=== PATIENT | female | born 1945 | race Caucasian/White ===

== ENCOUNTER 2018-02-18 09:54 | Outpatient (CLI) | payer MEDICARE ==
--- NOTE | 2018-02-21 10:54 | Mammography Report ---
Procedure Date: 02/18/2018 Accession Number: [id number] / [id number] Procedure: MGN - Screening Mammo Dig Bilat CPT Code: FULL RESULT: EXAM: Screening Mammo Dig Bilat DATE: 02/18/2018 10:19 AM CLINICAL HISTORY: 72-year-old female with history of early menses and personal history of left breast cancer status post lumpectomy and chemoradiation presents for screening mammogram. TECHNIQUE: Bilateral CC and MLO views were obtained. Additionally, right and left XCCL views were obtained. COMPARISON: 09/13/2015, 09/15/2014, 05/06/2013, 08/31/2011. FINDINGS: The breasts demonstrate scattered fibroglandular densities bilaterally. Coarse typically benign calcifications are seen bilaterally. Postsurgical and posttreatment changes in the left breast are stable. No suspicious masses, clustered microcalcifications, or regions of architectural distortion are identified. IMPRESSION: Benign findings RECOMMENDATION: Routine annual screening unless otherwise clinically indicated. BIRADS CATEGORY 2: Benign findings STANDARD QUALIFYING STATEMENTS: 1. This examination was reviewed with the aid of Computer-Aided Detection (CAD). 2. A negative or benign imaging report should not delay biopsy if clinically suspicious findings are present. Consider surgical consultation if warrented. More than 5% of cancers are not identified by imaging. 3. Dense breasts may obscure an underlying neoplasm.
== END 2018-02-18 09:55 | disposition home or self-care (01) ==
LOC: DI.N 09:54
PROVIDERS: ATTEND Internal Medicine
DX: Z12.31 Encounter for screening mammogram for malignant neoplasm of breast (principal)
CPT/HCPCS: 77067

== ENCOUNTER 2019-04-20 09:44 | Outpatient (CLI) | payer MEDICARE ==
[2019-04-20 10:05] LABS: BASOPHILS # (AUTO) 0.1 10^3/uL (0.0-0.1); BASOPHILS % (AUTO) 0.8 %; EOSINOPHILS # (AUTO) 0.2 10^3/uL (0.0-0.7); EOSINOPHILS % (AUTO) 2.9 %; HGB - HEMOGLOBIN 12.6 g/dL (12.0-16.0); LYMPHOCYTES # (AUTO) 1.7 10^3/uL (1.5-3.5); LYMPHOCYTES % (AUTO) 27.2 %; MEAN CORPUSCULAR HEMOGLOBIN 28.1 pg (27.0-31.0); MEAN CORPUSCULAR HGB CONC 31.5 g/dL (32.0-36.0); MEAN CORPUSCULAR VOLUME 89.3 fL (81.0-99.0); MEAN PLATELET VOLUME 12.4 fL (7.9-10.8); MONOCYTES # (AUTO) 0.5 10^3/uL (0.0-1.0); MONOCYTES % (AUTO) 7.9 %; NEUTROPHILS # (AUTO) 3.8 10^3/uL (1.5-6.6); NEUTROPHILS % (AUTO) 60.9 %; PLT - PLATELET COUNT 220 10^3/uL (130-450); RED BLOOD COUNT 4.48 10^6/uL (4.20-5.40); RED CELL DISTRIBUTION WIDTH 13.1 % (12.0-15.0); WHITE BLOOD COUNT 6.2 x10^3/uL (4.8-10.8)
[2019-04-20 10:16] LABS: BILIRUBIN,URINE NEGATIVE (NEGATIVE); GLUCOSE, URINE (UA) NEGATIVE (NEGATIVE); KETONES,URINE (UA) NEGATIVE (NEGATIVE); LEUKOCYTE ESTERASE, URINE NEGATIVE (NEGATIVE); NITRITE,URINE NEGATIVE (NEGATIVE); OCCULT BLOOD,URINE NEGATIVE (NEGATIVE); PROTEIN,URINE NEGATIVE (NEGATIVE); UROBILINOGEN,URINE 0.2 (NORMAL) E.U./dL (NORMAL)
[2019-04-20 10:17] LABS: CLARITY,URINE CLEAR (CLEAR)
[2019-04-20 10:26] LABS: ALBUMIN 4.3 g/dL (3.2-5.5); ALBUMIN/GLOBULIN RATIO 1.3 (1.0-2.2); ALKALINE PHOSPHATASE 62 IU/L (42-121); ALT ALANINE AMINOTRANSFERASE 18 IU/L (10-60); AST ASPARTATE AMINOTRANSFERASE 17 IU/L (10-42); BILIRUBIN,TOTAL 0.5 mg/dL (0.2-1.0); BUN - BLOOD UREA NITROGEN 43 mg/dL (6-20); CALCIUM 9.8 mg/dL (8.5-10.3); CARBON DIOXIDE - CO2 21 mmol/L (21-32); CHLORIDE 104 mmol/L (101-111); CHOL/HDL RATIO 2.9 (<4.4); CHOLESTEROL 168 mg/dL; CK- CREATINE KINASE 140 IU/L (22-269); CREATININE 0.9 mg/dL (0.4-1.0); GFR - MDRD 61 (>89); GLUCOSE 252 mg/dL (70-100); HDL CHOLESTEROL 58 mg/dL; LDL CHOLESTEROL,CALCULATED 85 mg/dL; LDL/HDL RATIO 1.5 (<4.4); SODIUM 137 mmol/L (135-145); TOTAL PROTEIN 7.5 g/dL (6.7-8.2); VLDL CHOLESTEROL 25 mg/dL
[2019-04-20 10:34] LABS: CREATININE,URINE 91.6 mg/dL; MICROALBUM/CREATININE RATIO,UR 9.8 ug/mg (<30.0); MICROALBUMIN,URINE 0.9 mg/dL (0-300.0)
[2019-04-20 10:49] LABS: HB2 TOTAL 12.9 g/dL; HEMOGLOBIN A1C 1.06 g/dL; HEMOGLOBIN A1C % 9.7 % (4.6-6.2)
[2019-04-20 11:33] LABS: THYROID STIMULATING HORMONE 2.06 uIU/mL (0.34-5.60)
== END 2019-04-20 09:45 | disposition home or self-care (01) ==
LOC: LAB 09:44
PROVIDERS: ATTEND Internal Medicine
DX: E78.5 Hyperlipidemia, unspecified (principal); Z79.899 Other long term (current) drug therapy; R20.0 Anesthesia of skin; E11.9 Type 2 diabetes mellitus without complications; I10 Essential (primary) hypertension; Z13.6 Encounter for screening for cardiovascular disorders; K21.9 Gastro-esophageal reflux disease without esophagitis; C50.919 Malignant neoplasm of unspecified site of unspecified female breast; M19.90 Unspecified osteoarthritis, unspecified site
CPT/HCPCS: 36415; 80053; 80061; 81001; 81003; 82043; 82550; 82570; 82607; 83036; 83721; 84443; 85025; 87086

== ENCOUNTER 2020-11-28 13:33 | Outpatient (CLI) | payer MEDICARE ==
--- NOTE | 2020-11-29 12:10 | Mammography Report ---
BILATERAL DIGITAL SCREENING MAMMOGRAM 3D/2D: 11/28/2020 CLINICAL: Routine screening. Personal history of left breast cancer. Family history of breast cancer. Comparison is made to exams dated: 02/18/2018 mammogram and 09/13/2015 mammogram - [facility]. There are scattered fibroglandular elements in both breasts. There are benign post operative findings in the left breast. No significant masses, calcifications, or other findings are seen in either breast. There has been no significant interval change. IMPRESSION: BENIGN There is no mammographic evidence of malignancy. A 1 year screening mammogram is recommended. This exam was interpreted at Station ID: [id number]. NOTE: For mammograms, a report in lay terms will be sent to the patient. Approximately 15% of breast malignancies will not be visualized mammographically. In the management of a palpable breast mass, a negative mammogram must not discourage biopsy of a clinically suspicious lesion. Electronically Signed By: Srinath Mills M.D. ar/devinrad:11/28/2020 14:35:21 ACR BI-RADS Category 2: Benign Finding(s) 3342F PARENCHYMAL PATTERN: (A) - The breast(s) demonstrate(s) scattered fibroglandular densities. BI-RADS CATEGORY: (2) - 2 RECOMMENDATION: (ANNUAL) - Recommend routine annual screening mammography. [id number] 1 year screening LATERALITY: (B)
== END 2020-11-28 13:34 | disposition home or self-care (01) ==
LOC: DI.N 13:33
PROVIDERS: ATTEND Internal Medicine
DX: Z12.31 Encounter for screening mammogram for malignant neoplasm of breast (principal); Z85.3 Personal history of malignant neoplasm of breast; Z80.3 Family history of malignant neoplasm of breast

== ENCOUNTER 2021-08-28 12:04 | Outpatient (CLI) | payer MEDICARE ==
--- NOTE | 2021-08-28 13:35 | Ultrasound Report ---
PROCEDURE: Duplex Ext Veins Right INDICATIONS: R LE PAIN TECHNIQUE: Real-time imaging, as well as color and pulse Doppler interrogation, were performed of the lower extr emity deep veins from the inguinal ligament to the popliteal fossa. COMPARISON: None. FINDINGS: The deep veins are normally compressible, and free of intraluminal thrombus. Color and pu lse Doppler demonstrate normal phasic intraluminal flow. There is normal augmentation response to di stal compression maneuver. Complex bilobed cystic structure is seen in popliteal fossa measures up to 4.3 x 1.7 x 16 cm in size. IMPRESSION: 1. No evidence of DVT in visualized right lower extremity veins. 2. Large popliteal cyst as above. Reviewed by: Darien Cherry MD on 08/28/2021 1:33 PM PST Approved by: Darien Cherry MD on 08/28/2021 1:33 PM PST Station ID: [id number]
== END 2021-08-28 12:05 | disposition home or self-care (01) ==
LOC: DI 12:04
PROVIDERS: ATTEND Internal Medicine
DX: M71.21 Synovial cyst of popliteal space [Baker], right knee (principal); M79.661 Pain in right lower leg

== ENCOUNTER 2021-09-14 15:28 | Outpatient (CLI) | payer MEDICARE ==
--- NOTE | 2021-09-14 16:23 | XRAY Report ---
PROCEDURE: Knee 4 View RT INDICATIONS: PAIN IN RIGHT KNEE TECHNIQUE: 4 views of the right knee(s) were acquired. One view of the left. COMPARISON: None. FINDINGS: Bones: Mild joint space narrowing in the medial and lateral compartments. There are small osteophyte s. No fractures or dislocations. No suspicious bony lesions. Left knee arthroplasty. Soft tissues: Small joint effusion. No suspicious soft tissue calcifications. 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 Reviewed by: Juan Lai MD on 09/14/2021 4:21 PM PST Approved by: Juan Lai MD on 09/14/2021 4:21 PM PST Station ID: [id number]
== END 2021-09-14 15:29 | disposition home or self-care (01) ==
LOC: DI.N 15:28
PROVIDERS: ATTEND Physician Assistant
DX: M17.11 Unilateral primary osteoarthritis, right knee (principal)

== ENCOUNTER 2021-10-24 07:22 | Outpatient (CLI) | payer MEDICARE ==
[2021-10-24 13:25] LABS: ALBUMIN/GLOBULIN RATIO 1.4 (1.0-2.2); ALKALINE PHOSPHATASE 45 IU/L (42-121); ALT ALANINE AMINOTRANSFERASE 23 IU/L (10-60); AST ASPARTATE AMINOTRANSFERASE 20 IU/L (10-42); BILIRUBIN,TOTAL 0.6 mg/dL (0.2-1.0); BUN - BLOOD UREA NITROGEN 42 mg/dL (6-20); CALCIUM 9.1 mg/dL (8.5-10.3); CARBON DIOXIDE - CO2 23 mmol/L (21-32); CHLORIDE 103 mmol/L (101-111); CHOL/HDL RATIO 2.6 (<4.4); CHOLESTEROL 157 mg/dL; CK- CREATINE KINASE 133 IU/L (22-269); CREATININE 0.9 mg/dL (0.4-1.0); GFR - MDRD 61 (>89); GLUCOSE 106 mg/dL (70-100); HDL CHOLESTEROL 61 mg/dL; LDL CHOLESTEROL,CALCULATED 67 mg/dL; LDL/HDL RATIO 1.1 (<4.4); POTASSIUM 3.9 mmol/L (3.5-5.0); SODIUM 135 mmol/L (135-145); TOTAL PROTEIN 6.9 g/dL (6.7-8.2); TRIGLYCERIDES 143 mg/dL; VLDL CHOLESTEROL 29 mg/dL
[2021-10-24 13:29] LABS: THYROID STIMULATING HORMONE 3.7 uIU/mL (0.34-5.60)
[2021-10-24 14:08] LABS: BILIRUBIN,URINE NEGATIVE (NEGATIVE); GLUCOSE, URINE (UA) NEGATIVE (NEGATIVE); KETONES,URINE (UA) NEGATIVE (NEGATIVE); LEUKOCYTE ESTERASE, URINE NEGATIVE (NEGATIVE); NITRITE,URINE NEGATIVE (NEGATIVE); OCCULT BLOOD,URINE NEGATIVE (NEGATIVE); PH,URINE 5.5 PH (5.0-7.5); PROTEIN,URINE NEGATIVE (NEGATIVE); UROBILINOGEN,URINE 0.2 (NORMAL) E.U./dL (NORMAL)
[2021-10-24 14:09] LABS: CLARITY,URINE CLEAR (CLEAR)
[2021-10-24 14:14] LABS: BACTERIA,URINE Rare /HPF (None Seen); RBC,URINE None Seen /HPF (0-5); SQUAMOUS EPITHELIAL CELL,UR NONE SEEN (<= Few)
[2021-10-24 14:15] LABS: WBC,URINE 0-3 /HPF (0-5)
[2021-10-24 14:21] LABS: ESTIMATED AVERAGE GLUCOSE 243 mg/dL (70-100); HEMOGLOBIN A1c% 10.1 % (4.27-6.07)
== END 2021-10-24 07:23 | disposition home or self-care (01) ==
LOC: LAB.N 07:22
PROVIDERS: ATTEND Internal Medicine
DX: I10 Essential (primary) hypertension (principal); E78.5 Hyperlipidemia, unspecified; Z13.6 Encounter for screening for cardiovascular disorders; R60.9 Edema, unspecified; N39.41 Urge incontinence; E11.9 Type 2 diabetes mellitus without complications; R20.0 Anesthesia of skin; K21.9 Gastro-esophageal reflux disease without esophagitis
CPT/HCPCS: 36415; 80053; 80061; 81001; 82043; 82550; 82570; 82607; 83036; 83721; 83880; 84443; 87086

== ENCOUNTER 2022-06-19 15:27 | Outpatient (CLI) | payer MEDICARE | END 2022-06-19 15:28 | disposition home or self-care (01) | LOC: LAB 15:27 | PROVIDERS: ATTEND Internal Medicine | DX: M25.562 Pain in left knee (principal); M25.561 Pain in right knee; E53.8 Deficiency of other specified B group vitamins | CPT/HCPCS: 36415; 82607; 82746; 83090; 83921 ==

== ENCOUNTER 2023-05-24 09:09 | Outpatient (CLI) | payer MEDICARE ==
[2023-05-24 09:26] LABS: ABSOLUTE RETICS # AUTO 0.053 10^6/uL (0.020-0.110); BASOPHILS # (AUTO) 0.1 10^3/uL (0.0-0.1); BASOPHILS % (AUTO) 0.9 %; EOSINOPHILS # (AUTO) 0.3 10^3/uL (0.0-0.7); EOSINOPHILS % (AUTO) 4.3 %; HGB - HEMOGLOBIN 12.4 g/dL (12.0-16.0); LYMPHOCYTES # (AUTO) 1.8 10^3/uL (1.5-3.5); LYMPHOCYTES % (AUTO) 30.4 %; MEAN CORPUSCULAR HEMOGLOBIN 27.6 pg (27.0-31.0); MEAN CORPUSCULAR HGB CONC 31.8 g/dL (32.0-36.0); MEAN CORPUSCULAR VOLUME 86.7 fL (81.0-99.0); MONOCYTES # (AUTO) 0.6 10^3/uL (0.0-1.0); MONOCYTES % (AUTO) 10.8 %; NEUTROPHILS # (AUTO) 3.1 10^3/uL (1.5-6.6); NEUTROPHILS % (AUTO) 53.4 %; PLT - PLATELET COUNT 204 10^3/uL (130-450); RED CELL DISTRIBUTION WIDTH 14.3 % (12.0-15.0); RETICULOCYTE COUNT % (AUTO) 1.18 % (0.5-2.3); WHITE BLOOD COUNT 5.9 x10^3/uL (4.8-10.8)
[2023-05-24 10:02] LABS: FERRITIN 31.7 ng/mL (11.0-306.8)
== END 2023-05-24 09:10 | disposition home or self-care (01) ==
LOC: LAB 09:09
PROVIDERS: ATTEND Nurse Practitioner
DX: M25.50 Pain in unspecified joint (principal)
CPT/HCPCS: 36415; 82607; 82728; 82746; 83540; 84466; 85025; 85045

== ENCOUNTER 2023-06-12 14:10 | Outpatient (CLI) | payer MEDICARE ==
--- NOTE | 2023-06-14 09:33 | Mammography Report ---
BILATERAL DIGITAL SCREENING MAMMOGRAM 3D/2D: 06/12/2023 CLINICAL: Routine screening. Personal history of left breast cancer. Comparison is made to exams dated: 11/28/2020 mammogram, 02/18/2018 mammogram, 09/13/2015 mammogram, an d 09/15/2014 mammogram - [facility]. There are scattered areas of fibroglandular density in both breasts (category b / 25%-50% glandular t issue). There are grouped fine calcifications in the left breast at 1 o'clock anterior depth. These are more prominent. Post operative finding in the left breast. Scattered benign calcifications in the left breast. No oth er significant masses, calcifications, or other findings are seen in either breast. IMPRESSION: INCOMPLETE: NEEDS ADDITIONAL IMAGING EVALUATION The grouped fine calcifications in the left breast are indeterminate. Additional views are recommended. This exam was interpreted at Station ID: [id number]. NOTE: For mammograms, a report in lay terms will be sent to the patient. Approximately 15% of breast malignancies will not be visualized mammographically. In the management of a palpable breast mass, a negative mammogram must not discourage biopsy of a clinically suspicious lesion. Electronically Signed By: Juan Lai M.D. slc/:06/12/2023 17:50:13 ACR BI-RADS Category 0: Incomplete 3340F PARENCHYMAL PATTERN: (A) - The breast(s) demonstrate(s) scattered fibroglandular densities. BI-RADS CATEGORY: (0) - 0 RECOMMENDATION: (ADDMAM) - Recommend additional mammographic views. [id number] Immediate follow-up LATERALITY: (B)
== END 2023-06-12 14:11 | disposition home or self-care (01) ==
LOC: DI 14:10
PROVIDERS: ATTEND Nurse Practitioner
DX: Z12.31 Encounter for screening mammogram for malignant neoplasm of breast (principal); R92.1 Mammographic calcification found on diagnostic imaging of breast; Z85.3 Personal history of malignant neoplasm of breast; R92.323 Mammographic fibroglandular density, bilateral breasts

== ENCOUNTER 2023-06-12 14:12 | Outpatient (CLI) | payer MEDICARE ==
--- NOTE | 2023-06-12 15:41 | DEXA Report ---
PROCEDURE: Dexa Spine and/or Hip INDICATIONS: POST MENOPAUSAL TECHNIQUE: Dual energy x-ray absorptiometry (DXA) was performed on a [facility]. Regions measur ed are the AP Spine, femoral neck, and if needed forearm. COMPARISON: None FINDINGS: Lumbar Spine: Bone Mineral Density 1.778 g/cm/cm,T score 5.0. Left Femoral Neck: Bone Mineral Density [1.162 g/cm/cm, T score 0.9. Left Hip: Bone Mineral Density 1.267 g/cm/cm,T score 2.1. (T score greater or equal to -1.0: NORMAL) (T score from -1.1 to -2.4: OSTEOPENIA) (T score less than or equal to -2.5 to: OSTEOPOROSIS) Impression: By WHO criteria, this patient has low bone density (osteopenia). Patients with diagnosis of osteoporosis or osteopenia should have regular bone mineral density assess ment. For those eligible for Medicare, routine testing is allowed once every 2 years. Testing frequ ency can be increased for patients who have rapidly progressing disease or for those who are receivin g medical therapy to restore bone mass. Reviewed by: Mallorie Lennon MD on 06/12/2023 3:40 PM PST Approved by: Mallorie Lennon MD on 06/12/2023 3:40 PM PST Station ID: [id number]
== END 2023-06-12 14:13 | disposition home or self-care (01) ==
LOC: DI 14:12
PROVIDERS: ATTEND Nurse Practitioner
DX: Z78.0 Asymptomatic menopausal state (principal)

== ENCOUNTER 2023-08-16 10:41 | Outpatient (CLI) | payer MEDICARE ==
--- NOTE | 2023-08-19 09:23 | Mammography Report ---
UNILATERAL LEFT DIGITAL DIAGNOSTIC MAMMOGRAM 3D/2D WITH MAGNIFICATION: 08/16/2023 CLINICAL: Patient returns for magnification views of microcalcifications in the left breast. Comparison is made to exams dated: 06/12/2023 mammogram and 11/28/2020 mammogram - [facility]. There are scattered areas of fibroglandular density in the left breast (category b / 25%-50% glandula r tissue). There are grouped fine heterogeneous pleomorphic calcifications in the left breast at 1 o'clock anter ior depth. These are seen in additional views. These are more prominent and increased in number of calcifications. No other significant masses or calcifications are seen in the breast. IMPRESSION: SUSPICIOUS OF MALIGNANCY The grouped fine heterogeneous pleomorphic calcifications in the left breast are suspicious of malign iraj. A stereotactic biopsy is recommended. Findings and recommendations were discussed with the patient by Dr. Floyd during today's examination. This exam was interpreted at Station ID: [id number]. NOTE: For mammograms, a report in lay terms will be sent to the patient. Approximately 15% of breast malignancies will not be visualized mammographically. In the management of a palpable breast mass, a negative mammogram must not discourage biopsy of a clinically suspicious lesion. Electronically Signed By: Ryan Stuart M.D. aty/:08/16/2023 11:39:13 ACR BI-RADS Category 4: Suspicious abnormality 3344F PARENCHYMAL PATTERN: (A) - The breast(s) demonstrate(s) scattered fibroglandular densities. BI-RADS CATEGORY: (4) - 4 Biopsy [id number] Immediate follow-up LATERALITY: (L)
== END 2023-08-16 10:42 | disposition home or self-care (01) ==
LOC: DI 10:41
PROVIDERS: ATTEND Nurse Practitioner
DX: R92.322 Mammographic fibroglandular density, left breast (principal); R92.1 Mammographic calcification found on diagnostic imaging of breast

== ENCOUNTER 2023-08-26 08:29 | Outpatient (CLI) | payer MEDICARE ==
[2023-08-26 09:48] LABS: CREATININE,URINE 86.8 mg/dL; MICROALBUM/CREATININE RATIO,UR 55.3 ug/mg (<30.0); MICROALBUMIN,URINE 4.8 mg/dL
[2023-08-26 11:34] LABS: ESTIMATED AVERAGE GLUCOSE 171 mg/dL (70-100); HEMOGLOBIN A1c% 7.6 % (4.27-6.07)
== END 2023-08-26 08:30 | disposition home or self-care (01) ==
LOC: LAB 08:29
PROVIDERS: ATTEND Nurse Practitioner
DX: E11.42 Type 2 diabetes mellitus with diabetic polyneuropathy (principal)
CPT/HCPCS: 36415; 82043; 82570; 83036

== ENCOUNTER 2023-09-10 08:07 | Outpatient (CLI) | payer MEDICARE ==
[2023-09-10] MEDS ORDERED: LIDOCAINE-MPF 1% 5 ML VIAL ONE (08:11)
[2023-09-10] MEDS ORDERED: LIDOCAINE 1%-EPI 1:100000 50 ML VIAL ONE (08:11)
[2023-09-10] MEDS: LIDOCAINE-MPF 1% 5 ML VIAL TD ONE (09:58)
[2023-09-10] MEDS ORDERED: LIDOCAINE 1%-EPI 1:100000 50 ML VIAL TD ONE (10:00)
[2023-09-10] MEDS: LIDOCAINE 1%-EPI 1:100000 50 ML VIAL TD SCH (10:00)
--- NOTE | 2023-09-12 17:03 | Mammography Report ---
STEREOTACTIC GUIDED BIOPSY LEFT BREAST USING VACUUM DEVICE WITH MARKING DEVICE INSERTED AND POST MAMM OGRAPHIC IMAGING- - LEFT BREAST POST-PROCEDURE IMAGING FOR MARKER PLACEMENT: 09/10/2023 CLINICAL: Left stereotactic biopsy for calcifications. Correlation is made to exams dated: 08/16/2023 mammogram, 06/12/2023 mammogram, 11/28/2020 mammogram, 02/18/2018 mammogram, 09/13/2015 mammogram, and 09/15/2014 mammogram - [facility]. A stereotactic guided biopsy was performed for the concerning area of calcifications located in the l eft breast at 1 o'clock anterior depth. This was described on the previous mammography report. The skin was prepped in the usual manner. Local anesthetic was administered to the access site. A s kin alberto was made in the breast. The abnormality was approached from the caudocranial aspect. A 10 gauge biopsy needle was placed adjacent to the abnormality under computer guidance and confirmatory s tereotactic mammography images were obtained to document needle placement. Once the needle was docum ented to be in the correct location, six specimens were obtained using a vacuum assisted device. A clip was inserted into the biopsy cavity. Post procedure mammographic imaging demonstrates the loc ation device at the targeted area. The specimens were sent to the laboratory for pathological analys is. IMPRESSION: STEREOTACTIC GUIDED BIOPSY MALIGNANT Stereotactic guided biopsy of the area of calcifications in the left breast at 1 o'clock anterior dep th was successful. Specimen radiograph contains the calcifications of interest. Pathology demonstrate ductal carcinoma in situ. Pathology results are concordant with imaging finding s. A surgical/oncologic consultation is recommended. This exam was interpreted at Station ID: [id number]. José fu,slc/:09/12/2023 14:35:07 BI-RADS CATEGORY: () - Unspecified - other recall n/a LATERALITY: (B)
== END 2023-09-10 08:08 ==
LOC: DI 08:07
PROVIDERS: ATTEND Nurse Practitioner
DX: D05.12 Intraductal carcinoma in situ of left breast (principal)
CPT/HCPCS: 19081; J3490

== ENCOUNTER 2023-11-11 06:28 | Day surgery (SDC) | payer MEDICARE ==
[~2023-11-11 06:28] MED LIST: ceFAZolin 2 GM VIAL ONE
[2023-11-11] MEDS: LACTATED RINGERS 1,000 ML IV ONE ×3 (06:57→12:24)
[2023-11-11] MEDS ORDERED: LIDOCAINE 1%-EPI 1:100000 20 ML MDV ONE (06:57)
[2023-11-11] MEDS ORDERED: BUPIVACAINE 0.5% PF 10 ML VIAL ONE (06:58)
[2023-11-11] MEDS: ACETAMINOPHEN 500 MG TABLET PO ONE (07:09)
[2023-11-11] MEDS ORDERED: fentaNYL 100 MCG/2 ML VIAL ONE ×2 (07:11→08:54)
[2023-11-11] MEDS ORDERED: PROPOFOL 200 MG/20 ML VIAL IVP ONE (07:11)
[2023-11-11] MEDS ORDERED: ePHEDrine 50 MG/ML VIAL IVP ONE (07:54)
--- NOTE | 2023-11-11 07:58 | ANESTHESIA ---
Pre-Anesthesia VS, & Labs - Diagnosis Left breast cancer DCIS - Procedure Left mastectomy Vital Signs: Temp Pulse Resp BP Pulse Ox O2 Flow Rate 36.4 C L 70 22 137/61 H 93 11/11/23 07:01 11/11/23 07:01 11/11/23 07:01 11/11/23 07:01 11/11/23 07:01 Height: 5 ft 9 in Weight (kg): 100.2 kg Body Mass Index: 32.5 BMI Classification: Obese - NPO >8 hours - Is Patient ?: No - Lab Results Current Lab Results: Laboratory Tests 11/11/23 07:12: POC Whole Bld Glucose 100 Lab results reviewed: Yes Home Medications and Allergies Felodipine [Felodipine ER] 10 mg PO HS 02/08/23 Insulin Glargine [Lantus] 25 unit SUBQ QPM 02/08/23 Lisinopril [Zestril] 40 mg PO HS 02/08/23 Metformin HCl 1,000 mg PO BID 02/08/23 glipiZIDE [Glucotrol] 5 mg PO BID 02/08/23 Acetaminophen [Tylenol] 650 mg PO Q6H PRN 10/17/23 Gabapentin [Neurontin] 400 mg PO HS 10/17/23 Triamterene/Hydrochlorothiazid [Triamterene-Hctz 37.5-25 mg Cp] 1 each PO HS 10/17/23 carvediloL [Coreg] 3.125 mg PO BID 10/17/23 Allergies/Adverse Reactions: Allergies Allergy/AdvReac Type Severity Reaction Status Date / Time No Known Drug Allergies Allergy Verified 11/11/23 07:07 Anes History & Medical History - Anesthetic History Anesthesia Complications: reports: No previous complications - Medical History Cardiovascular: reports: Hypertension, High cholesterol Pulmonary: reports: None Gastrointestinal: reports: Hiatal hernia Urinary: reports: Other (Episode of renal failure due to medication. Resolved, did not need dialysis) Neuro: reports: Peripheral neuropathy Musculoskeletal: reports: Osteoarthritis Endocrine/Autoimmune: reports: Type 2 diabetes Skin: reports: None Smoking Status: Never smoker Psychosocial: reports: No issues indicated History of Cancer?: Yes (breast) - Surgical History General: reports: Cholecystectomy, Other Eyes Ears Nose Throat (EENT): reports: Cataracts Orthopedic: reports: Knee replacement Exam General: Alert, Oriented x3, Cooperative, No acute distress Dental: Dentures full Upper, Dentures full Lower Mouth Openin Fingerbreadth Neck Mobility: Normal Mallampati classification: III Thyromental Distance: 4-6 cm Mental/Cognitive Status: Alert/Oriented X3, Normal for patient Plan Anesthesia Type: General Consent for Procedure(s) Verified and Reviewed: Yes Code Status: Attempt Resuscitation ASA classification: 3-Severe systemic disease Is this case an emergency?: No
[2023-11-11] MEDS ORDERED: HYDROmorphone 0.5 MG/0.5 ML SYRINGE IVP PRN ×2 (08:01→10:34)
[2023-11-11] MEDS ORDERED: MORPHINE 2 MG/ML CARPUJECT IVP PRN (08:01)
[2023-11-11] MEDS ORDERED: NALOXONE 0.4 MG/ML VIAL IVP PRN (08:01)
[2023-11-11] MEDS ORDERED: fentaNYL 100 MCG/2 ML VIAL IVP PRN (08:01)
[2023-11-11] MEDS ORDERED: ATROPINE ABBOJECT 1 MG/10 ML SYRINGE IVP PRN (08:01)
[2023-11-11] MEDS ORDERED: HYDROmorphone 1 MG/ML CARPUJECT ONE (08:10)
[2023-11-11] MEDS: BUPIVACAINE 0.5% PF 10 ML VIAL IM ONE (08:23)
[2023-11-11] MEDS: LIDOCAINE 1%-EPI 1:100000 20 ML MDV SUBQ ONE (08:24)
[2023-11-11] MEDS ORDERED: LACTATED RINGERS 1,000 ML IV SCH (09:00)
[2023-11-11] MEDS ORDERED: ONDANSETRON 4 MG/2 ML VIAL ONE ×2 (09:33→10:49)
[2023-11-11] MEDS ORDERED: IBUPROFEN 600 MG TABLET PO PRN (10:29)
[2023-11-11] MEDS ORDERED: ACETAMINOPHEN 325 MG TABLET PO PRN (10:29)
[2023-11-11] MEDS ORDERED: ONDANSETRON 4 MG/2 ML VIAL IVP PRN (10:29)
[2023-11-11] MEDS ORDERED: oxyCODONE 5 MG TABLET PO PRN (10:29)
--- NOTE | 2023-11-11 10:41 | OPERATIVE REPORT ---
Operative Report - General Procedure Date: 11/11/23 Planned Procedure: left mastectomy Pre-Op Diagnosis: h/o IDC, now with DCIS Procedure Performed: left mastectomy Post Op Diagnosis: IDC, DCIS - Procedure Note Primary Surgeon: Dr. Neelima De Souza Anesthesia Provider: Melanie Bennett CRNA Anesthesia Technique: General LMA, Local Pathology: left mastectomy, oriented short superior, long lateral short blue biopsy (DCIS) site long blue lumpectomy (IDC) site Estimated Blood Loss (mL): 20 Drain/Tube Type: Harrison Williamson round drain (left breast) Indications: Ms. Cevallos is a 77-year-old female with a remote history of invasive ductal carcinoma of the left breast. This was treated with lumpectomy and radiation more than 20 years ago. On her most recent mammogram, she had a new area of concern identified. 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 She was seen and evaluated in the clinic. She also had a follow-up MRI. There was concern for abnormalities at her old lumpectomy site. Due to her history of radiation, and the abnormal findings on MRI, I strongly recommended a mastectomy to treat the patient's DCIS. After discussion with medical oncology, further interrogation of the patient's lymph nodes that appear normal on imaging was not recommended and no sentinel lymph node biopsy was done today. We did discuss the risks, benefits, and alternatives of mastectomy including bleeding, infection, damage to surrounding structures, hematoma formation, numbness in the area, and the need for further surgeries or procedures. The patient voiced understanding, her questions were answered, and she wished to proceed. A consent was signed by the patient prior to surgery. Findings: 1. Left lumpectomy specimen oriented short superior, long lateral, skin anterior 2. Previous lumpectomy site (IDC) labeled long blue 3. Previous biopsy site (new DCIS) labeled short blue Complications: None - Other Other Information/Narrative: The patient was taken to the operating room and placed in the supine position. Preop antibiotics were given. ERAS medications were given. The patient was prepped and draped in the usual sterile fashion. A preop surgical timeout was performed. Attention was turned to the patient's left breast. An incision was planned to incorporate both the patient's biopsy site in her previous lumpectomy site given the abnormalities identified on imaging. Local was injected following the lines of the incision. An incision was made with a 10 blade scalpel and skin flaps were raised superiorly to the clavicle and inferiorly to the inframammary crease, medially to the sternum, and laterally to the latissimus. The dissection was carried from medial to lateral. The breast was removed and hemostasis was ensured. The specimen was labeled short superior, long lateral, anterior skin. The previous lumpectomy site and biopsy site were also tagged. The specimen was sent to mammography and the biopsy clip was confirmed to be within the specimen. The tissues were irrigated with 500 mL of warm normal saline. Again hemostasis was confirmed. A ALFONSO drain was placed in the subcutaneous tissue. This was sewn in place with 3-0 Prolene suture. The deep dermal tissues were closed with 2-0 Vicryl in an interrupted fashion. The skin was closed with 4-0 Monocryl in a running subcuticular fashion and INSORB subcutaneous dianna. Sterile dressing of skin glue was placed. Moreno wrap's were placed. The patient tolerated the procedure well. There were no complications. She was extubated in the operating room and transferred to recovery in stable condition. Synoptic Breast SNB - [place] Node Biopsy Operation performed with curative intent: Yes Tracer(s) used to identify sentinel nodes in the upfront surgery (non- neoadjuvant) setting (select all that apply): Other (with explanation) (no SLN bx done due to patient age and discussion with med onc preoperatively.) Tracer(s) used to identify sentinel nodes in the neoadjuvant setting (select all that apply): N/A All nodes (colored or non-colored) present at the end of a dye-filled lymphatic channel were removed: N/A All significantly radioactive nodes were removed: N/A All palpably suspicious nodes were removed: N/A Biopsy-proven positive nodes marked with clips prior to chemotherapy were identified and removed: N/A
[2023-11-11] MEDS: ONDANSETRON 4 MG/2 ML VIAL IVP PRN (10:54)
[2023-11-11] MEDS ORDERED: PROMETHAZINE INJ 6.25 MG in SODIUM CHLORIDE 0.9% 50 ML IV PRN (11:19)
[2023-11-11] MEDS: PROMETHAZINE 25 MG/1 ML VIAL ONE (12:45)
[2023-11-11 14:40] VITALS: BP 126/72; O2SAT 96
--- NOTE | 2023-11-11 15:39 | ANESTHESIA POST OP EVALUATION ---
Anesthesia Post Eval - Post Anesthesia Eval Vitals: Last Vital Signs Temp 36.9 C 11/11/23 14:30 Pulse 70 11/11/23 14:30 Resp 16 11/11/23 14:30 BP 126/72 11/11/23 14:30 Pulse Ox 96 11/11/23 14:30 O2 Flow Rate CV Function Including HR & BP: Stable Pain Control: Satisfactory Nausea & Vomiting: Negative Mental Status: Baseline Respiratory Status: Airway Patent Hydration Status: Satisfactory Anesthesia Complications: None
--- NOTE | 2023-11-13 10:00 | Mammography Report ---
SPECIMEN: 11/11/2023 CLINICAL: Left mastectomy specimen for clip placement. Correlation is made to exams dated: 10/21/2023 breast MRI - [facility], 09/10/2023 stereotactic biop sy, 08/16/2023 mammogram, and 06/12/2023 mammogram - [facility]. Left breast lumpectomy specimen contains the biopsy clip and surgical clips. IMPRESSION: SPECIMEN Left breast lumpectomy specimen contains the biopsy clip. This exam was interpreted at Station ID: [id number]. Juan Lai M.D. slc/:11/12/2023 16:48:56 BI-RADS CATEGORY: () - Unspecified - other recall n/a LATERALITY: (B)
== END 2023-11-11 06:29 | disposition home or self-care (01) ==
LOC: SDS 06:28
PROVIDERS: ATTEND Surgery
PROC: 0HBU0ZZ Excision of Left Breast, Open Approach (ICD-10-PCS; principal; 2023-11-11 07:30)
DX: D05.12 Intraductal carcinoma in situ of left breast (principal); Z17.0 Estrogen receptor positive status [ER+]; I10 Essential (primary) hypertension; E11.42 Type 2 diabetes mellitus with diabetic polyneuropathy; E11.65 Type 2 diabetes mellitus with hyperglycemia; E66.9 Obesity, unspecified; Z68.37 Body mass index [BMI] 37.0-37.9, adult; Z79.4 Long term (current) use of insulin; Z79.84 Long term (current) use of oral hypoglycemic drugs
CPT/HCPCS: 19303; 76098; A9270; J1170; J7040; J7120

== ENCOUNTER 2023-12-23 15:09 | Outpatient (CLI) | payer MEDICARE ==
[2023-12-23] MEDS ORDERED: iohexoL-300 100 ML VIAL ONE (15:21)
[2023-12-23 15:47] LABS: CREATININE 0.9 mg/dL (0.6-1.3)
[2023-12-23] MEDS: iohexoL-300 100 ML VIAL IVP ONE (16:21)
--- NOTE | 2023-12-23 16:41 | CT Report ---
PROCEDURE: Chest W INDICATIONS: INFECTION FOLLOWING A PROCEDURE CONTRAST: 100ml [id number] TECHNIQUE: After the administration of intravenous contrast, a CT scan of the chest was performed. Images were recorded and evaluated at appropriate window settings. Reformats: axial MIP of the chest, coronal and sagittal. For radiation dose reduction, the following was used: automated exposure control, adjustme nt of mA and/or kV according to patient size. COMPARISON: None. FINDINGS: Image quality: Diagnostic. Chest wall and lower neck: Thyroid gland demonstrates heterogeneous bilateral low-attenuation foci.Dias rgical changes reflecting left mastectomy are present. There is stranding within the subcutaneous fat . Low-attenuation structure measuring 14.6 x 4.8 cm is present. Minimal stranding is present along th e posterior left lateral aspect. No axillary or supraclavicular adenopathy by size. Lungs and pleura: No consolidation. No pleural effusions. No pneumothorax. 1.4 x 1.8 spiculated late ral left lower lobe mass series 4 image 69. Mediastinum: Heart size is normal. No pericardial effusion. No large vessel abnormality. No mediastin al adenopathy by size criteria. Mild hiatal hernia. Bones: No aggressive osseous abnormality. Upper Abdomen: Unremarkable. IMPRESSION: Surgical changes reflecting left mastectomy. Low-attenuation focus in the left anterior chest wall wi th areas of stranding within the subcutaneous fat. Finding appears somewhat atypical for breast impl ant given surrounding inflammatory change and less distinct markings than typically identified within the implant. In absence of implant, finding is most consistent with postoperative seroma/developing phlegmon/abscess. If indeed an implant was placed, there is surrounding inflammatory change which may be postoperative in nature. Reviewed by: Nancie Fernández MD on 12/23/2023 4:40 PM PDT Approved by: Nancie Fernández MD on 12/23/2023 4:40 PM PDT Station ID: [id number]
== END 2023-12-23 15:10 | disposition home or self-care (01) ==
LOC: LAB 15:09
PROVIDERS: ATTEND Family Medicine
DX: T81.41XA Infection following a procedure, superficial incisional surgical site, initial encounter (principal); Z90.12 Acquired absence of left breast and nipple
CPT/HCPCS: 36415; 71260; 82565; Q9967

== ENCOUNTER 2024-02-03 09:40 | Outpatient (CLI) | payer MEDICARE ==
[2024-02-03 11:05] LABS: ESTIMATED AVERAGE GLUCOSE 143 mg/dL (70-100); HEMOGLOBIN A1c% 6.6 % (4.27-6.07)
== END 2024-02-03 09:41 | disposition home or self-care (01) ==
LOC: LAB 09:40
PROVIDERS: ATTEND Nurse Practitioner
DX: E11.65 Type 2 diabetes mellitus with hyperglycemia (principal)
CPT/HCPCS: 36415; 83036